=== PATIENT | male | born 1995 | race Hispanic/Latino ===

== ENCOUNTER 2023-10-09 17:48 | Emergency (ER) | payer BC ==
[2023-10-09 19:00] LABS: SARS-CoV-2 NAA Rapid Test Not Detected (NotDetected)
[2023-10-09] MEDS ORDERED: Acetaminophen 325 MG TAB ONE (19:50)
== END 2023-10-09 19:55 | disposition home or self-care (01) ==
LOC: CSHERS 17:48
DX: J11.1 Influenza due to unidentified influenza virus with other respiratory manifestations (principal); Z20.822 Contact with and (suspected) exposure to COVID-19
CPT/HCPCS: 87081; 87430; 99283